=== PATIENT | female | born 1955 | race Caucasian/White ===

== ENCOUNTER 2017-09-06 14:52 | Inpatient (IN) | payer OTHER ==
[~2017-09-06] VITALS: Ht 160 cm; Wt 101.8 kg
[~2017-09-06 14:52] MED LIST: DOCUSATE SODIU100 MG PO; GABAPENTIN300 MG PO; HYDROCHLOROTHIA25 MG PO; LEVOFLOXACIN750 MG PO; LOVASTATIN20 MG PO; MORPHINE SULFAT15 M1 PO; MORPHINE SULFAT30 M2 PO; NAPROXEN500 MG PO; PERCOCET 7.51 TABLET PO; PRISTIQ100 MG PO; PROMETHAZINE HC25 M1 PO
[2017-09-06 16:43] LABS: HEMATOCRIT 37.4 % (36.0-46.0); HEMOGLOBIN 12.8 G/DL (11.9-15.5); MCH 32.2 PG (29.0-34.0); MCHC 34.2 G/DL (30.0-36.0); PLATELET COUNT 346 K/uL (156-360); RBC DIS.WIDTH-CV 12.5 % (11.8-14.6); RBC DIS.WIDTH-SD 42.7 % (39-53); RED BLOOD COUNT 3.98 M/uL (3.80-5.20); WHITE BLOOD COUNT 15.8 K/uL (4.1-10.2)
[2017-09-06 17:04] LABS: TROP-I INTERPRETATION NEGATIVE; TROPONIN-I < 0.01 ng/mL (0.0-0.30)
[2017-09-06 17:16] LABS: CHLORIDE 98 MEQ/L (99-109); CREATININE 0.6 MG/DL (0.6-1.3); GFR ESTIMATE (CALCULATED) > 59 mL/min/; GLUCOSE 114 mg/dL (70-99); SODIUM 138 MEQ/L (136-147); UREA NITROGEN (BUN) 17 mg/dL (9-23)
[2017-09-06 17:54] LABS: APPEARANCE SL.HAZY ((CLEAR)); BILIRUBIN SMALL; BLOOD NEGATIVE; COLOR AMBER ((YELLOW)); GLUCOSE (STRIP) NEGATIVE; KETONES 20; LEUKOCYTES MODERATE; NITRITE NEGATIVE; PROTEIN (STRIP) 100; SPECIFIC GRAVITY 1.036 (1.000-1.030)
[2017-09-06] MEDS ORDERED: PERCOCET 10/1 TABLET PO (18:27)
[2017-09-06] MEDS ORDERED: SYMBICORT60 INHALAT IH (18:29)
[2017-09-06] MEDS ORDERED: LYRICA75 MG PO (18:29)
[2017-09-06] MEDS ORDERED: WELLBUTRIN75 MG PO (18:29)
[2017-09-06] MEDS ORDERED: MUCINEX1200 MG PO (18:31)
[2017-09-06] MEDS ORDERED: SSD25GM TP (18:31)
[2017-09-06 19:03] LABS: BACTERIA RARE /HPF; EPITHELIAL CELLS 1+ /HPF; MUCUS 2+ /LPF; RED BLOOD CELLS RARE /HPF (0-5); UCUL ADDED? NO; WHITE BLOOD CELLS 0-5 /HPF (0-5)
[2017-09-06 19:04] LABS: FINE GRANULAR CASTS RARE /LPF
[2017-09-07 07:23] LABS: BASOPHIL (%) 0.4 % (0-1); EOSINOPHIL (%) 0 % (0-5); IMMATURE GRANULOCYTE (%) 1.5 % (0.0-0.7); LYMPHOCYTE (%) 16.8 % (15-42); LYMPHOCYTE COUNT 1.2 K/uL (1.0-2.8); MCH 32.1 PG (29.0-34.0); MCHC 34.3 G/DL (30.0-36.0); MCV 93.6 FL (83-99); MONOCYTE (%) 1.2 % (3-12); MONOCYTE COUNT 0.1 K/uL (0-0.8); NEUTROPHIL (%) 80.1 % (45-76); NEUTROPHIL COUNT 5.9 K/uL (1.8-6.4); PLATELET COUNT 367 K/uL (156-360); RBC DIS.WIDTH-CV 12.4 % (11.8-14.6); RBC DIS.WIDTH-SD 42.5 % (39-53); RED BLOOD COUNT 3.74 M/uL (3.80-5.20); WHITE BLOOD COUNT 7.3 K/uL (4.1-10.2)
[2017-09-07 07:57] LABS: ALBUMIN 3.7 G/DL (3.2-4.8); ALKALINE PHOSPHATASE 58 IU/L (3-129); ALT (GPT) 13 IU/L (3-49); AST (GOT) 14 IU/L (2-34); CHLORIDE 105 MEQ/L (99-109); CREATININE 0.5 MG/DL (0.6-1.3); GFR ESTIMATE (CALCULATED) > 59 mL/min/; GLUCOSE 164 mg/dL (70-99); SODIUM 138 MEQ/L (136-147); TOTAL BILIRUBIN 0.4 MG/DL (0.0-1.0); TOTAL PROTEIN 7.4 G/DL (6.4-8.3); UREA NITROGEN (BUN) 15 mg/dL (9-23)
[2017-09-07 07:58] LABS: POTASSIUM 4.2 MEQ/L (3.7-5.4)
[2017-09-07 15:29] VITALS: BP 141/63
[2017-09-07 20:33] VITALS: BP 132/71
[2017-09-07 23:01] VITALS: BP 110/60
[2017-09-08 04:10] VITALS: BP 116/65
[2017-09-08 07:25] VITALS: BP 121/61
[2017-09-08 12:00] VITALS: BP 142/73
[2017-09-08] MEDS ORDERED: AUGMENTIN875 MG PO (12:06)
== END 2017-09-08 13:23 | disposition home or self-care (01) | DRG 193 ==
LOC: EME 14:52 → EDOF 18:29 → 4SOUTH 18:29 → ENRESERV 18:31 → CANRESERV 09-07 11:56 → ENRESERV 09-07 11:56 → 4SOUTH 09-07 13:43
PROVIDERS: Hospitalist; Physician Assistant
DX: J18.9 Pneumonia, unspecified organism (principal); J96.01 Acute respiratory failure with hypoxia; E87.6 Hypokalemia; J98.01 Acute bronchospasm; I10 Essential (primary) hypertension; E78.5 Hyperlipidemia, unspecified; E11.9 Type 2 diabetes mellitus without complications; F32.9 Major depressive disorder, single episode, unspecified; G89.4 Chronic pain syndrome; Z89.511 Acquired absence of right leg below knee
CPT/HCPCS: 71046; 80048; 80053; 81003; 83605; 83880; 84484; 85025; 85027; 85379; 87040; 87449; 87502; 93005; 94640; 94640 76; 94799; 99202; 99281; 99285; J0456; J0696; J1650; J2405; J2920; J7030; Q0169